=== PATIENT | female | born 1990 | race Caucasian/White ===

== ENCOUNTER 2017-06-12 22:49 | Emergency (ER) | payer MEDICAID ==
[2017-06-12 22:56] VITALS: BP 144/96
[2017-06-12] MEDS ORDERED: PROPARACAINE 0.5% OPHTH DROPS 15 ML ONE (23:12)
[2017-06-12] MEDS ORDERED: POLYMYXIN B/TRIMETH OPHTH DROPS ONE (23:12)
[2017-06-12] MEDS ORDERED: PROPARACAINE 0.5% OPHTH DROPS 15 ML RIGHTEYE STA (23:14)
[2017-06-12] MEDS ORDERED: POLYMYXIN B/TRIMETH OPHTH DROPS RIGHTEYE STA (23:14)
--- NOTE | 2017-06-12 23:33 | ED Physician Documentation ---
PD HPI OPHTHO - Stated complaint Stated Complaint: RT EYE PX - Chief complaint Chief Complaint: Heent - History obtained from History obtained from: Patient - History of Present Illness Timing - onset: Today Timing - details: Gradual onset, Still present Location: Right Quality / character: Burning, Throbbing Associated symptoms: Redness, Discharge, Matting Contributing factors: No: Exposed to conjunctivitis, Recent URI, FB, UV light ( welding etc), Chemical exposure, acid, Chemical exposure, base Similar symptoms before: Has not had sx before Recently seen: Not recently seen - Additional information Additional information: Patient is a 27 year old female with no significant past medical history who is presenting to the emergency department for right eye pain, redness and discharge. Patient states that earlier today her eye started to feel a bit irritated. patient denied an trauma. Patient states that she took a nap and when she woke up she had a red eye with purulent discharge. patient denies any sick contacts. Review of Systems Constitutional: denies: Fever, Chills Eyes: reports: Decreased vision, Photophobia, Discharge, Irritation. 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 - Present Medications Home Medications: Ambulatory Orders Medication Instructions Recorded Confirmed Albuterol 2.5 mg INH Q4H PRN #30 neb 09/12/13 Albuterol Sulfate 1.25 mg IH PRN 09/12/13 09/12/13 Albuterol [Ventolin Hfa] 2 puffs INH Q4H PRN #1 inhaler 09/12/13 Azithromycin [Zithromax] 250 mg PO DAILY #4 tablet 09/12/13 Vit37/Iron/Folic Acid 1 each PO 09/12/13 09/12/13 [Prenata Chewable Tablet] - Allergies Allergies/Adverse Reactions: Allergies Allergy/AdvReac Type Severity Reaction Status Date / Time meperidine HCl * Allergy Hives Verified 06/12/17 22:56 [From Demerol] - Social History Does the pt smoke?: No Smoking Status: Never smoker Does the pt drink ETOH?: No Does the pt have substance abuse?: No - Immunizations Immunizations are current?: No - POLST Patient has POLST: No PD ED PE NORMAL - Vitals Vital signs reviewed: Yes - General General: Alert and oriented X 3 - HEENT HEENT: Atraumatic, Ears normal, Moist mucous membranes, Pharynx benign - Neck Neck: Supple, no meningeal sign - Cardiac Cardiac: RRR, No murmur - Respiratory Respiratory: No respiratory distress - Abdomen Abdomen: Soft, Non tender, Non distended - Derm Derm: Normal color, Warm and dry - Extremities Extremities: No deformity, No tenderness to palpate, No edema - Neuro Neuro: Alert and oriented X 3, 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 No: Corneal FB, Corneal abrasion Results - Vitals Vitals: Vital Signs - 24 hr 06/12/17 22:52 Temperature 36.6 C Heart Rate 87 Respiratory 17 Rate Blood Pressure 144/96 H O2 Saturation 98 Oxygen O2 Source Room air PD MEDICAL DECISION MAKING - ED course Complexity details: reviewed old records, re-evaluated patient, considered differential, d/w patient ED course: Patient was seen and examined at bedside. Patient was treated with proparacaine and polytrim. Patient required no further work up and was stable for discharge with outpatient follow up. Departure - Departure Disposition: 01 Home, Self Care Clinical Impression: Conjunctivitis Condition: Good Instructions: ED Conjunctivitis Bacterial Follow-Up: Isabelle Saez MD [Primary Care Provider] - Within 3 Days Comments: Your symptoms today are being caused by conjunctivitis. You were given your first dose of antibiotics today and you will need to apply drops 4 times a day. You should follow up with your pmd if your symptoms persist. You should return to the emergency department at any time for new, worsening or uncontrollable symptoms. Discharge Date/Time: 06/12/17 23:40
== END 2017-06-12 23:40 | disposition home or self-care (01) ==
LOC: ED 22:49
DX: I10 Essential (primary) hypertension (principal)
CPT/HCPCS: 99282; 99283; A9270; J3490

== ENCOUNTER 2018-05-08 11:53 | Emergency (ER) | payer MEDICAID ==
[2018-05-08 12:19] VITALS: BP 148/88
--- NOTE | 2018-05-08 13:09 | ED Physician Documentation ---
PD HPI URI - Stated complaint Stated Complaint: WHEEZING - Chief complaint Chief Complaint: Resp - History obtained from History obtained from: Patient - History of Present Illness Timing - onset: How many weeks ago (1-2 weeks of congestion and allergy symptoms , increased wheeze and cough. Has had purulent sputum the past few days and worse cough. Out of mDI.) Review of Systems Constitutional: reports: Myalgias, Fatigue. denies: Fever Nose: reports: Congestion, Sinus pressure / pain. 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 - Present Medications Home Medications: Ambulatory Orders Medication Instructions Recorded Confirmed Albuterol 2.5 mg INH Q4H PRN #30 neb 09/12/13 Vit37/Iron/Folic Acid 1 each PO 09/12/13 09/12/13 [Prenata Chewable Tablet] Albuterol 2.5 mg INH Q4H PRN #30 neb 05/08/18 Albuterol Sulf [Ventolin Hfa 1 - 2 puffs INH Q4HR PRN #1 inhaler 05/08/18 Inhaler] Amoxicillin 500 mg PO TID #20 capsule 05/08/18 Cetirizine [ZyrTEC] 10 mg PO DAILY #20 tablet 05/08/18 Dexamethasone [Decadron] 4 mg PO DAILY #5 tablet 05/08/18 - Allergies Allergies/Adverse Reactions: Allergies Allergy/AdvReac Type Severity Reaction Status Date / Time meperidine HCl * Allergy Hives Verified 05/08/18 12:18 [From Demerol] - Social History Does the pt smoke?: No Smoking Status: Never smoker Does the pt drink ETOH?: No Does the pt have substance abuse?: Yes Substance Use and Type: Marijuana - Immunizations Immunizations are current?: Yes - POLST Patient has POLST: No PD ED PE NORMAL - Vitals Vital signs reviewed: Yes - General General: Alert and oriented X 3, Well developed/nourished - HEENT HEENT: Ears normal, Moist mucous membranes, Pharynx benign - Neck Neck: Supple, no meningeal sign, No adenopathy - Cardiac Cardiac: RRR, No murmur - Respiratory Respiratory: No: Clear bilaterally (wheezing noted diffusely. No coarse sounds. ) Results - Vitals Vitals: Oxygen O2 Source Room air PD MEDICAL DECISION MAKING - ED course Complexity details: reviewed results, considered differential, d/w patient - Sepsis Event Vital Signs: Oxygen O2 Source Room air Departure - Departure Disposition: Home, Self Care Clinical Impression: Asthma exacerbation Qualifiers: Asthma severity: moderate Asthma persistence: unspecified Qualified Code(s): J45.901 - Unspecified asthma with (acute) exacerbation Sinusitis Qualifiers: Sinusitis location: unspecified location Chronicity: acute Recurrence: non- recurrent Qualified Code(s): J01.90 - Acute sinusitis, unspecified Condition: Stable Record reviewed to determine appropriate education?: Yes Instructions: Asthma Dc, ED Sinusitis Abx Tx Follow-Up: Isabelle Saez MD [Primary Care Provider] - Prescriptions: Albuterol Sulf [Ventolin Hfa Inhaler] 1 - 2 puffs INH Q4HR PRN #1 inhaler PRN Reason: Shortness Of Air/Wheezing Albuterol 2.5 mg INH Q4H PRN #30 neb PRN Reason: Wheezing Amoxicillin 500 mg PO TID #20 capsule Cetirizine [ZyrTEC] 10 mg PO DAILY #20 tablet Dexamethasone [Decadron] 4 mg PO DAILY #5 tablet Comments: Drink lots of fluids. Consider saline nasal spray to decrease nasal and sinus congestion several times daily. Decadron steroid daily for 5 days for inflammation of sinuses and bronchioles. This should help her symptoms a lot. Continue the albuterol inhaler 2 puffs 4 times a day for the next 7-10 days and extra times as needed. Cetirizine antihistamine for the next couple of weeks to reduce and keep congestion away. Amoxicillin 3 times a day for a week for infection of the sinuses. Recheck if not improving over the next several days. Discharge Date/Time: 05/08/18 14:15
[2018-05-08] MEDS ORDERED: ALBUTEROL NEB 2.5 MG/3 ML INH STA (13:16)
[2018-05-08] MEDS ORDERED: DEXAMETHASONE 10 MG/ML VIAL PO STA (13:16)
[2018-05-08] MEDS ORDERED: CETIRIZINE 10 MG TABLET PO STA (13:16)
[2018-05-08] MEDS ORDERED: AMOXICILLIN 250 MG CAPSULE PO STA (13:18)
== END 2018-05-08 14:15 | disposition home or self-care (01) ==
LOC: ED 11:53
DX: J45.901 Unspecified asthma with (acute) exacerbation (principal); J01.90 Acute sinusitis, unspecified
CPT/HCPCS: 94640; 94664; 99283; A9270

== ENCOUNTER 2018-08-10 09:48 | Emergency (ER) | payer MEDICAID ==
[2018-08-10 09:56] VITALS: BP 140/100
[2018-08-10] MEDS ORDERED: PROPARACAINE 0.5% OPHTH DROPS 15 ML EACHEYE STA (09:58)
[2018-08-10] MEDS ORDERED: IBUPROFEN 400 MG TABLET PO STA (10:16)
[2018-08-10] MEDS ORDERED: ERYTHROMYCIN OPHTH OINT 1 GM TUBE RIGHTEYE STA (10:16)
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
== END 2018-08-10 10:26 | disposition home or self-care (01) ==
LOC: ED 09:48
DX: S05.8X1A Other injuries of right eye and orbit, initial encounter (principal); W22.8XXA Striking against or struck by other objects, initial encounter; I10 Essential (primary) hypertension
CPT/HCPCS: 99282; 99283; A9270; J3490

== ENCOUNTER 2019-02-18 05:38 | Emergency (ER) | payer MEDICAID ==
--- NOTE | 2019-02-18 06:22 | ED Physician Documentation ---
PD HPI DYSPNEA - Stated complaint Stated Complaint: SOA - Chief complaint Chief Complaint: Resp - History obtained from History obtained from: Patient - History of Present Illness Timing - onset: Yesterday Timing - details: Gradual onset, Waxing and waning Pain level now: 4 (ONEAL (only when coughing)) Improved by: Sitting up Worsened by: Laying flat Associated symptoms: Cough, Wheezing. No: Fever, Bilateral edema, Unilateral edema Recently seen: Not recently seen - Additional information Additional information: c/o cough, chest "constricted" (per patient), wheezing. symptoms began yesterday. Feels post-nasal drip, sinus congestion. used albuterol MDI and sudafed without adequate relief. Review of Systems Ears: denies: Ear pain Nose: reports: Congestion Throat: denies: Sore throat Cardiac: reports: Reviewed and negative Respiratory: reports: Dyspnea, Cough, Wheezing. 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 - Present Medications Home Medications: Ambulatory Orders Medication Instructions Recorded Confirmed Vit37/Iron/Folic Acid 1 each PO 09/12/13 09/12/13 [Prenata Chewable Tablet] Albuterol Sulf [Ventolin Hfa 1 - 2 puffs INH Q4HR PRN #1 inhaler 05/08/18 Inhaler] Cetirizine [ZyrTEC] 10 mg PO DAILY #20 tablet 05/08/18 Erythromycin Base [Erythromycin] 1 applic OP Q4H #1 tub 08/10/18 Levalbuterol [Xopenex] 1 puffs INH Q4-6H #1 inhaler 02/18/19 predniSONE [Prednisone] 40 mg PO DAILY 4 Days #8 tablet 02/18/19 - Allergies Allergies/Adverse Reactions: Allergies Allergy/AdvReac Type Severity Reaction Status Date / Time meperidine HCl * Allergy Hives Verified 02/18/19 05:47 [From Demerol] - Social History Does the pt smoke?: No Smoking Status: Never smoker Does the pt drink ETOH?: Yes Does the pt have substance abuse?: No Substance Use and Type: Marijuana - Immunizations Immunizations are current?: Yes - POLST Patient has POLST: No PD ED PE NORMAL - Vitals Vital signs reviewed: Yes - General General: Alert and oriented X 3, No acute distress, Well developed/nourished - HEENT HEENT: Moist mucous membranes, Pharynx benign - Cardiac Cardiac: RRR, No murmur - Respiratory Respiratory: No respiratory distress PD ED PE EXPANDED - Respiratory Respiratory: Wheezing (course wheezing bilateral bases and left mid lung field). No: Distress Results - Vitals Vitals: Vital Signs - 24 hr 02/18/19 02/18/19 02/18/19 05:43 07:23 08:05 Temperature 37.6 C H 37.0 C Heart Rate 92 104 H 80 Respiratory 16 106 H 16 Rate Blood Pressure 154/90 H 147/87 H O2 Saturation 100 97 Oxygen O2 Source Room air PD MEDICAL DECISION MAKING - ED course Complexity details: re-evaluated patient, considered differential, d/w patient ED course: given duoneb and 60mg PO prednisone. Patient reported good improvement in symptoms after duoneb and is comfortable with d/c home. Departure - Departure Disposition: 01 Home, Self Care Clinical Impression: Asthma exacerbation Condition: Good Instructions: ED Reactive Airway Disease Prescriptions: Levalbuterol [Xopenex] 1 puffs INH Q4-6H #1 inhaler predniSONE [Prednisone] 40 mg PO DAILY 4 Days #8 tablet Forms: Activity restrictions Discharge Date/Time: 02/18/19 08:09
[2019-02-18] MEDS ORDERED: predniSONE 20 MG TABLET PO STA (06:37)
[2019-02-18] MEDS ORDERED: IPRATROPIUM/ALBUTEROL 3 ML NEB INH STA (06:37)
[2019-02-18 08:05] VITALS: BP 147/87
== END 2019-02-18 08:09 | disposition home or self-care (01) ==
LOC: ED 05:38
DX: J45.901 Unspecified asthma with (acute) exacerbation (principal); I10 Essential (primary) hypertension
CPT/HCPCS: 94640; 99283; J7512

== ENCOUNTER 2019-04-25 21:35 | Emergency (ER) | payer MEDICAID ==
[2019-04-25] MEDS ORDERED: ALBUTEROL NEB 2.5 MG/3 ML INH STA (22:32)
[2019-04-25] MEDS ORDERED: SULFAMETH/TRIMETH DS 800/160 MG TABLET PO STA (22:32)
[2019-04-25] MEDS ORDERED: DEXAMETHASONE 10 MG/ML VIAL PO STA (22:32)
[2019-04-25] MEDS ORDERED: CHERRY SYRUP 10 ML UDC PO ONE (22:32)
--- NOTE | 2019-04-25 22:48 | ED Physician Documentation ---
History of Present Illness - Stated complaint Stated Complaint: ASTHMA EXACERBATION, BUG BITE - Chief complaint Chief Complaint: Resp - History obtained from History obtained from: Patient - History of Present Illness Timing: Other (1 month ago) Pain level max: 0 Pain level now: 0 - Additonal information Additional information: 29-year-old female presents to the emergency department stating that her asthma has been acting up over the last month. She does have an inhaler at home. Used to take allergy medication but currently is not taking any. No fevers. No coughing. She uses her inhaler 1-2 times per day. She also noted a "bug bite" to the right lower leg. She states that it is still red. No fevers. 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 Home Medications: Ambulatory Orders Medication Instructions Recorded Confirmed Vit37/Iron/Folic Acid 1 each PO 09/12/13 09/12/13 [Prenata Chewable Tablet] Albuterol Sulf [Ventolin Hfa 1 - 2 puffs INH Q4HR PRN #1 inhaler 05/08/18 Inhaler] Cetirizine [ZyrTEC] 10 mg PO DAILY #20 tablet 05/08/18 Erythromycin Base [Erythromycin] 1 applic OP Q4H #1 tub 08/10/18 Levalbuterol [Xopenex] 1 puffs INH Q4-6H #1 inhaler 02/18/19 predniSONE [Prednisone] 40 mg PO DAILY 4 Days #8 tablet 02/18/19 Albuterol Sulf [Ventolin Hfa 1 - 2 puffs INH Q4HR PRN #1 inhaler 04/25/19 Inhaler] Cetirizine [ZyrTEC] 10 mg PO DAILY #30 tablet 04/25/19 Sulfamethox/Trimeth 800/160 1 each PO BID #14 tablet 04/25/19 [Bactrim Ds 800/160] predniSONE [Prednisone] 40 mg PO DAILY #10 tablet 04/25/19 - Allergies Allergies/Adverse Reactions: Allergies Allergy/AdvReac Type Severity Reaction Status Date / Time meperidine HCl * Allergy Hives Verified 02/18/19 05:47 [From Demerol] - Social History Does the pt smoke?: No Smoking Status: Never smoker Does the pt drink ETOH?: Yes Does the pt have substance abuse?: No - Immunizations Immunizations are current?: Yes - POLST Patient has POLST: No PD ED PE NORMAL - Vitals Vital signs reviewed: Yes - General General: Alert and oriented X 3, No acute distress - HEENT HEENT: Moist mucous membranes - Neck Neck: Supple, no meningeal sign - Cardiac Cardiac: RRR, Strong equal pulses - Respiratory Respiratory: No respiratory distress, Other (Diminished breath sounds and mild wheezing bilaterally. No respiratory distress) - Derm Derm: Warm and dry, Other (2 cm area of erythema to the right lower leg. No induration. No fluctuance. No drainage) - Neuro Neuro: Alert and oriented X 3 Results - Vitals Vitals: Vital Signs - 24 hr 04/25/19 04/25/19 04/25/19 22:05 22:47 23:11 Temperature 37.2 C 36.8 C Heart Rate 92 92 92 Respiratory 16 16 20 Rate Blood Pressure 147/100 H 149/94 H O2 Saturation 96 93 Oxygen O2 Source Room air PD MEDICAL DECISION MAKING - ED course Complexity details: considered differential, d/w patient ED course: Feels better after nebulizer treatment. Will place on albuterol and Zyrtec for home. She is well-appearing, nontoxic. Afebrile. No hypoxia. Also given a dose of dexamethasone. Will also place on Bactrim for home for the mild cellulitis. Patient counseled regarding signs and symptoms for which I believe and urgent re-evaluation would be necessary. Patient with good understanding of and agreement to plan and is comfortable going home at this time This document was made in part using voice recognition software. While efforts are made to proofread this document, sound alike and grammatical errors may occur. Departure - Departure Disposition: 01 Home, Self Care Clinical Impression: Seasonal allergies, Cellulitis of right lower extremity Asthma exacerbation Qualifiers: Asthma severity: moderate Asthma persistence: unspecified Qualified Code(s): J45.901 - Unspecified asthma with (acute) exacerbation Condition: Good Instructions: ED Reactive Airway Disease, ED Infec Skin Cellulitis Follow-Up: your,doctor in 1 week [Other] Prescriptions: Albuterol Sulf [Ventolin Hfa Inhaler] 1 - 2 puffs INH Q4HR PRN #1 inhaler PRN Reason: Shortness Of Air/Wheezing Cetirizine [ZyrTEC] 10 mg PO DAILY #30 tablet predniSONE [Prednisone] 40 mg PO DAILY #10 tablet Sulfamethox/Trimeth 800/160 [Bactrim Ds 800/160] 1 each PO BID #14 tablet Comments: Take all antibiotics until gone. Return if you worsen. Follow-up with your doctor for further care. Discharge Date/Time: 04/25/19 23:12
[2019-04-25 23:12] VITALS: BP 149/94
== END 2019-04-25 23:12 | disposition home or self-care (01) ==
LOC: ED 21:35
DX: J45.901 Unspecified asthma with (acute) exacerbation (principal); L03.115 Cellulitis of right lower limb; I10 Essential (primary) hypertension
CPT/HCPCS: 94640; 94664; 99283; A9270

== ENCOUNTER 2019-07-21 11:10 | Emergency (ER) | payer MEDICAID ==
[2019-07-21 11:40] LABS: BILIRUBIN,URINE NEGATIVE (NEGATIVE); GLUCOSE, URINE (UA) NEGATIVE (NEGATIVE); KETONES,URINE (UA) NEGATIVE (NEGATIVE); LEUKOCYTE ESTERASE, URINE NEGATIVE (NEGATIVE); NITRITE,URINE NEGATIVE (NEGATIVE); OCCULT BLOOD,URINE LARGE (NEGATIVE); PH,URINE 7.5 PH (5.0-7.5); PROTEIN,URINE 30 mg/dL (NEGATIVE); UROBILINOGEN,URINE 0.2 (NORMAL) E.U./dL (NORMAL)
[2019-07-21 11:41] LABS: CLARITY,URINE CLOUDY (CLEAR)
[2019-07-21 11:44] LABS: HCG UR QUAL POSITIVE
[2019-07-21 11:56] LABS: BACTERIA,URINE Rare /HPF (None Seen); RBC,URINE TNTC /HPF (0-5); SQUAMOUS EPITHELIAL CELL,UR RARE Squamous (<= Few)
[2019-07-21 14:03] VITALS: BP 155/106
--- NOTE | 2019-07-21 14:14 | Ultrasound Report ---
Reason: early bleeding/pain Procedure Date: 07/21/2019 Accession Number: [id number] / [id number] Procedure: US - OB First Trimester CPT Code: FULL RESULT: EXAM: FIRST TRIMESTER OBSTETRIC ULTRASOUND (Less than 11 weeks) EXAM DATE: 07/21/2019 01:12 PM. CLINICAL HISTORY: Early bleeding/pain. BetahCG 310. LMP: 07/06/2020. COMPARISONS: None. TECHNIQUE: Transabdominal and transvaginal ultrasound examination with static image documentation. CLINICAL DATES: EGA 2 weeks 1 day with KADEN 04/11/2020 based on LMP. ASSESSMENT: No intrauterine gestational sac or findings of intrauterine at this time. MATERNAL STRUCTURES: Uterus: Anteverted. Unremarkable. Cervix: Closed. Right Ovary/Adnexa: The ovary measures 6.2 x 2.9 x 4.1 cm, volume 38.5 cc. There is a bilobed shape to the right ovary with a possible solid mass measuring 3.7 x 2.9 x 4.0 cm. Blood flow present in right ovary on Doppler.. Left Ovary/Adnexa: The ovary measures 2.8 x 2.1 x 2.0 cm, volume 6.2 cc. Unremarkable. Free Fluid: Small volume of free fluid.. Other: None. IMPRESSION: 1. No intrauterine gestational sac. Differential diagnosis would include normal early intrauterine too early to visualize, ectopic , and blighted ovum. 2. Right ovarian solid mass measuring 3.7 x 2.9 x 4 cm versus bilobed shape of right ovary. Nonspecific finding. Considering low hCG and clinical age of 2 weeks and 1 day, follow-up recommended. 3. Small free fluid in the cul-de-sac. RADIA
--- NOTE | 2019-07-21 15:15 | ED Physician Documentation ---
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 Review of Systems Constitutional: reports: Fatigue. denies: Fever, Chills, Myalgias Eyes: denies: Decreased vision Ears: denies: Ear pain Nose: denies: Congestion Throat: denies: Sore throat Respiratory: denies: Cough GI: reports: Abdominal Pain, Nausea, Vomiting : denies: Dysuria, Frequency Skin: denies: Rash Musculoskeletal: denies: Neck pain, Back pain, Extremity pain PD PAST MEDICAL HISTORY - Past Medical History Cardiovascular: Hypertension Respiratory: Asthma Endocrine/Autoimmune: None GI: None SOFTWARE DATABASE ARCHITECT: None : None Psych: None Musculoskeletal: None Derm: None - Past Surgical History Past Surgical History: Yes /SOFTWARE DATABASE ARCHITECT: section - Present Medications Home Medications: Ambulatory Orders Medication Instructions Recorded Confirmed Vit37/Iron/Folic Acid 1 each PO 09/12/13 09/12/13 [Prenata Chewable Tablet] Albuterol Sulf [Ventolin Hfa 1 - 2 puffs INH Q4HR PRN #1 inhaler 05/08/18 Inhaler] Cetirizine [ZyrTEC] 10 mg PO DAILY #20 tablet 05/08/18 Erythromycin Base [Erythromycin] 1 applic OP Q4H #1 tub 08/10/18 Levalbuterol [Xopenex] 1 puffs INH Q4-6H #1 inhaler 02/18/19 predniSONE [Prednisone] 40 mg PO DAILY 4 Days #8 tablet 02/18/19 Albuterol Sulf [Ventolin Hfa 1 - 2 puffs INH Q4HR PRN #1 inhaler 04/25/19 Inhaler] Cetirizine [ZyrTEC] 10 mg PO DAILY #30 tablet 04/25/19 Sulfamethox/Trimeth 800/160 1 each PO BID #14 tablet 04/25/19 [Bactrim Ds 800/160] predniSONE [Prednisone] 40 mg PO DAILY #10 tablet 04/25/19 - Allergies Allergies/Adverse Reactions: Allergies Allergy/AdvReac Type Severity Reaction Status Date / Time meperidine HCl * Allergy Hives Verified 02/18/19 05:47 [From Demerol] - Social History Does the pt smoke?: No Smoking Status: Never smoker Does the pt drink ETOH?: Yes Does the pt have substance abuse?: No - Immunizations Immunizations are current?: Yes - POLST Patient has POLST: No PD ED PE NORMAL - Vitals Vital signs reviewed: Yes (tachy and hypertensive ) - General General: Alert and oriented X 3, No acute distress, Well developed/nourished - HEENT HEENT: Atraumatic, PERRL, EOMI - Neck Neck: Supple, no meningeal sign, No bony TTP - Cardiac Cardiac: No murmur, Other (tachy to 100) - Respiratory Respiratory: No respiratory distress, Clear bilaterally - Abdomen Abdomen: Soft, Non tender - Back Back: No CVA TTP, No spinal TTP - Derm Derm: Normal color, Warm and dry, No rash - Extremities Extremities: No deformity, No edema - Neuro Neuro: Alert and oriented X 3, crown ceramist 2-12 intact, No motor deficit, No sensory deficit, Normal speech Eye Opening: Spontaneous Motor: Obeys Commands Verbal: Oriented GCS Score: 15 - Psych Psych: Normal mood, Normal affect Results - Vitals Vitals: Vital Signs - 24 hr 07/21/19 07/21/19 11:19 14:02 Temperature 36.3 C L 36.7 C Heart Rate 113 H 101 H Respiratory 18 18 Rate Blood Pressure 146/96 H 155/106 H O2 Saturation 99 97 Oxygen O2 Source Room air - Labs Labs: Laboratory Tests 07/21/19 07/21/19 11:32 13:05 HCG, Quant 310.34 Urine Color LT RED Urine Clarity CLOUDY Urine pH 7.5 Ur Specific [place] 1.015 Urine Protein 30 H Urine Glucose (UA) NEGATIVE Urine Ketones NEGATIVE Urine Occult Blood LARGE H Urine Nitrite NEGATIVE Urine Bilirubin NEGATIVE Urine Urobilinogen 0.2 (NORMAL) Ur Leukocyte Esterase NEGATIVE Urine RBC TNTC H Urine WBC 0-3 Ur Squamous Epith Cells RARE Squamous Urine Bacteria Rare Ur Microscopic Review INDICATED Urine Culture Comments NOT INDICATED Urine HCG, Qual POSITIVE - Rads (name of study) ob u/s Radiology: Prelim report reviewed (Impression: 1. No intrauterine gestational sac. Differential diagnosis would include normal early intrauterine too early to visualize, ectopic , and blighted ovum. 2 Right ovarian solid mass measuring 3.7 x 2.9 x 4 cm versus bilobed shape of the right ovary. Nonspecific finding. Consider low hCG and clinical age of 2 weeks and 1 day follow-up recommended. 3. Small free fluid in the cul-de-sac.), EMP read indepedently, See rad report PD MEDICAL DECISION MAKING - ED course Complexity details: reviewed results, re-evaluated patient, considered differential, d/w patient ED course: 29-year-old female with early and a quantitative hCG in the 300 range does not have visible gestational sac. She will need follow-up quantitative hCG and surveillance. I discussed the findings with the patient and she will follow[facility] with [facility]. Departure - Departure Disposition: 01 Home, Self Care Clinical Impression: Threatened miscarriage in early Condition: Stable Instructions: ED Miscarriage Poss, ED Abdominal Pain Rule Out Ectopic Follow-Up: [facility] [Provider Group] Forms: Activity restrictions
== END 2019-07-21 16:28 | disposition home or self-care (01) ==
LOC: ED 11:10
DX: O20.0 Threatened abortion (principal); Z3A.01 Less than 8 weeks gestation of pregnancy; O16.1 Unspecified maternal hypertension, first trimester
CPT/HCPCS: 76801; 76817; 81001; 81003; 81025; 84702; 87086; 99284

== ENCOUNTER 2019-07-24 08:00 | Outpatient (CLI) | payer MEDICAID | END 2019-07-24 23:59 | LOC: LAB.R 08:00 | PROVIDERS: ATTEND Obstetrics & Gynecology | DX: O23.41 Unspecified infection of urinary tract in pregnancy, first trimester (principal) | CPT/HCPCS: 87086 ==

== ENCOUNTER 2019-07-24 13:51 | Outpatient (CLI) | payer MEDICAID | END 2019-07-24 13:52 | disposition home or self-care (01) | LOC: LAB 13:51 | PROVIDERS: ATTEND Obstetrics & Gynecology | DX: Z32.01 Encounter for pregnancy test, result positive (principal); O23.41 Unspecified infection of urinary tract in pregnancy, first trimester | CPT/HCPCS: 36415; 84702; 87086 ==

== ENCOUNTER 2019-07-27 13:40 | Outpatient (CLI) | payer MEDICAID | END 2019-07-27 13:41 | disposition home or self-care (01) | LOC: LAB 13:40 | PROVIDERS: ATTEND Obstetrics & Gynecology | DX: Z34.80 Encounter for supervision of other normal pregnancy, unspecified trimester (principal) | CPT/HCPCS: 36415; 84702 ==

== ENCOUNTER 2019-07-28 16:50 | Outpatient (CLI) | payer MEDICAID ==
--- NOTE | 2019-07-29 14:25 | Ultrasound Report ---
Reason: POSITIVE TEST Procedure Date: 07/28/2019 Accession Number: [id number] / [id number] Procedure: US - OB First Trimester CPT Code: FULL RESULT: EXAM: FIRST TRIMESTER OBSTETRIC ULTRASOUND (Less than 11 weeks) EXAM DATE: 07/28/2019 06:45 PM. CLINICAL HISTORY: Bleeding and pain, POSITIVE TEST. HCG 695 currently, previous hCG 310 on 07/21/2019 LMP: 07/06/2020. COMPARISONS: OB FIRST TRIMESTER 07/21/2019 1:12 PM. TECHNIQUE: Transabdominal and transvaginal ultrasound examination with static image documentation. CLINICAL DATES: EGA 3 weeks 1 day with KADEN 04/11/2020 based on LMP.. ASSESSMENT: Gestational Sac: Intrauterine gestational sac not seen. MATERNAL STRUCTURES: Uterus: Anteverted. Question small posterior subserosal fibroid, approximately 1.5 cm in diameter.. Cervix: Closed. Right Ovary/Adnexa: The ovary measures 6.2 x 4 x 5.5 cm, volume 71.5 cc. The previously described possible solid mass is not seen today. A 3.8 x 3.1 x 4.2 cm cyst with possible septation is seen.. Left Ovary/Adnexa: The ovary measures 2.7 x 2.3 x 2.2 cm, volume 6.8 cc. Unremarkable. Free Fluid: None. Other: None. IMPRESSION: 1. An intrauterine gestational sac is not seen. 2. A 3.8 x 3.1 x 4.2 cm cyst is now seen on the right ovary. Previously described possible solid right ovarian mass not identified today. 3. Differential diagnosis still includes normal intrauterine too early to visualize, ectopic , and blighted ovum. Follow-up of beta-hCG levels and repeat ultrasound recommended. RADIA
== END 2019-07-28 16:51 | disposition home or self-care (01) ==
LOC: DI 16:50
PROVIDERS: ATTEND Obstetrics & Gynecology
DX: Z32.01 Encounter for pregnancy test, result positive (principal); N83.201 Unspecified ovarian cyst, right side
CPT/HCPCS: 76801; 76817

== ENCOUNTER 2019-08-05 06:14 | Day surgery (SDC) | payer MEDICAID ==
[2019-08-05] MEDS ORDERED: DEXAMETHASONE 4 MG/ML VIAL IVP ONE (06:15)
[2019-08-05] MEDS ORDERED: DOXYCYCLINE INJ 100 MG in SODIUM CHLORIDE 0.9% MINIBAG 100 ML IV ONE (06:15)
[2019-08-05] MEDS ORDERED: ACETAMINOPHEN 1,000 MG/100 ML 100 ML IV ONE (06:15)
[2019-08-05] MEDS ORDERED: MIDAZOLAM 2 MG/2 ML VIAL IVP ONE (06:15)
[2019-08-05] MEDS ORDERED: KETOROLAC 30 MG/ML VIAL IVP ONE (06:15)
[2019-08-05] MEDS ORDERED: METOCLOPRAMIDE 10 MG/2 ML VIAL IVP ONE (06:15)
[2019-08-05] MEDS ORDERED: PROPOFOL 200 MG/20 ML VIAL IVP ONE (06:15)
[2019-08-05] MEDS ORDERED: LACTATED RINGERS 1,000 ML IV ONE ×2 (06:41→09:23)
[2019-08-05 07:11] LABS: BASOPHILS # (AUTO) 0.1 10^3/uL (0.0-0.1); BASOPHILS % (AUTO) 0.5 %; BILIRUBIN,URINE NEGATIVE (NEGATIVE); EOSINOPHILS # (AUTO) 0.2 10^3/uL (0.0-0.7); EOSINOPHILS % (AUTO) 1.1 %; GLUCOSE, URINE (UA) NEGATIVE (NEGATIVE); HGB - HEMOGLOBIN 13.4 g/dL (12.0-16.0); KETONES,URINE (UA) TRACE mg/dL (NEGATIVE); LEUKOCYTE ESTERASE, URINE NEGATIVE (NEGATIVE); LYMPHOCYTES # (AUTO) 2.1 10^3/uL (1.5-3.5); LYMPHOCYTES % (AUTO) 16.1 %; MEAN CORPUSCULAR HGB CONC 33.5 g/dL (32.0-36.0); MEAN CORPUSCULAR VOLUME 86.6 fL (81.0-99.0); MEAN PLATELET VOLUME 8.8 fL (7.9-10.8); MONOCYTES # (AUTO) 0.5 10^3/uL (0.0-1.0); MONOCYTES % (AUTO) 3.8 %; NEUTROPHILS # (AUTO) 10.3 10^3/uL (1.5-6.6); NEUTROPHILS % (AUTO) 77.9 %; NITRITE,URINE NEGATIVE (NEGATIVE); OCCULT BLOOD,URINE NEGATIVE (NEGATIVE); PH,URINE 6.5 PH (5.0-7.5); PLT - PLATELET COUNT 307 10^3/uL (130-450); PROTEIN,URINE 100 mg/dL (NEGATIVE); RED BLOOD COUNT 4.62 10^6/uL (4.20-5.40); RED CELL DISTRIBUTION WIDTH 13.3 % (12.0-15.0); UROBILINOGEN,URINE 0.2 (NORMAL) E.U./dL (NORMAL); WHITE BLOOD COUNT 13.2 x10^3/uL (4.8-10.8)
[2019-08-05 07:12] LABS: CLARITY,URINE CLEAR (CLEAR)
[2019-08-05 07:17] LABS: RBC,URINE 0-5 /HPF (0-5)
[2019-08-05 07:18] LABS: BACTERIA,URINE Rare /HPF (None Seen); SQUAMOUS EPITHELIAL CELL,UR MOD Squamous (<= Few)
--- NOTE | 2019-08-05 07:19 | ANESTHESIA ---
Pre-Anesthesia VS, & Labs - Diagnosis nonviable , possible ectopic - Procedure suction D and C, with diagnostic laparoscopy Vital Signs: Temp Pulse Resp BP Pulse Ox 37.2 C 104 H 18 157/106 H 100 08/05/19 06:42 08/05/19 06:42 08/05/19 06:42 08/05/19 06:42 08/05/19 06:42 Height 5 ft 4 in Weight (kg) 109.1 kg Body Mass Index 43.8 - NPO >8 hours - Is Patient ?: Yes - Lab Results Current Lab Results: Laboratory Tests 08/05/19 06:40: WBC 13.2 H, RBC 4.62, Hgb 13.4, Hct 40.0, MCV 86.6, MCH 29.0, MCHC 33.5, RDW 13.3, Plt Count 307, MPV 8.8, Neut # (Auto) 10.3 H, Lymph # (Auto) 2.1, [place] # (Auto) 0.5, Eos # (Auto) 0.2, Baso # (Auto) 0.1, Absolute Nucleated RBC 0.00, Nucleated RBC % 0.0 Fish Bones: 08/05/19 06:40 Home Medications and Allergies Home Medications: Ambulatory Orders Multivitamin [Daily Multiple Vitamin] 1 each PO DAILY 08/03/19 Multivitamin [Daily Multiple Vitamin] 1 each PO DAILY 08/03/19 Allergies/Adverse Reactions: Allergies Allergy/AdvReac Type Severity Reaction Status Date / Time meperidine HCl * Allergy Hives Verified 08/05/19 06:54 [From Demerol] Anes History & Medical History - Anesthetic History Anesthesia Complications: reports: No previous complications - Medical History Cardiovascular: reports: Other Pulmonary: reports: Asthma Gastrointestinal: reports: None Urinary: reports: None Musculoskeletal: reports: None Endocrine/Autoimmune: reports: Other (obese) Blood Disorders: reports: None Skin: reports: None Smoking Status: Never smoker - Surgical History Gynecologic: section Exam General: Alert, Oriented x3 Dental: WNL, Other (right upper incisor missing) Mouth Opening: Greater than 4 Fingerbreadths Mallampati classification: I Thyromental Distance: greater than 6 cm Respiratory: Lungs clear Cardiovascular: Regular rate, Normal S1, Normal S2 Plan Anesthesia Type: General Consent for Procedure(s) Verified and Reviewed: Yes Code Status: Attempt Resuscitation ASA classification: 2-Mild systemic disease Is this case an emergency?: No
[2019-08-05] MEDS ORDERED: ONDANSETRON 4 MG/2 ML VIAL ONE ×2 (07:25→11:00)
[2019-08-05] MEDS ORDERED: SCOPOLAMINE PATCH TOP ONE (07:25)
[2019-08-05] MEDS ORDERED: IPRATROPIUM/ALBUTEROL 3 ML NEB INH ONE (07:32)
[2019-08-05] MEDS ORDERED: BUPIVACAINE 0.5% PF 10 ML VIAL ONE (07:47)
[2019-08-05] MEDS ORDERED: LIDOCAINE MPF 1%-EPI 1:200000 30 ML VIAL ONE (07:48)
[2019-08-05] MEDS ORDERED: BUPIVACAINE 0.25% PF 30 ML VIAL SUBQ ONE ×2 (08:31)
[2019-08-05] MEDS ORDERED: SUGAMMADEX 200 MG/2 ML VIAL IVP ONE (09:21)
[2019-08-05] MEDS ORDERED: HYDROmorphone 0.5 MG/0.5 ML SYRINGE IVP PRN (09:38)
[2019-08-05] MEDS ORDERED: ONDANSETRON 4 MG/2 ML VIAL IVP PRN (09:38)
[2019-08-05] MEDS ORDERED: HYDROcod/ACETAM 5/325 MG TABLET PO PRN (09:38)
[2019-08-05] MEDS: fentaNYL 100 MCG/2 ML VIAL ONE ×2 (09:56→10:01)
--- NOTE | 2019-08-05 10:37 | OPERATIVE REPORT ---
DATE OF SERVICE: 08/05/2019 Physician: Tomas Nguyễn DO DATE OF PROCEDURE: 08/05/2019. PREOPERATIVE DIAGNOSIS: Nonviable , probable ectopic. POSTOPERATIVE DIAGNOSIS: Right ectopic . PROCEDURE: Suction D and C with laparoscopic right salpingectomy. SURGEON: Tomas Nguyễn DO ANESTHESIA: General. ESTIMATED BLOOD LOSS: 20 mL SURGICAL FINDINGS: The uterus sounded to a depth of 10.5 cm. Virtually no tissue was recovered from the endometrial curettage. Laparoscopic findings revealed a right corpus luteum cyst. There was also a right ectopic , which was coming through the ampulla into the fimbriated end and adhesed to the right sidewall. The liver margins, diaphragms and appendix were unremarkable. The posterior and anterior cul-de-sacs were unremarkable. The left ovary was unremarkable as was the left fallopian tube. PROCEDURE: Patient was taken to the operative suite, placed on the surgical table in supine position. Under general anesthesia, she was placed in Crow stirrups, prepped and draped in the usual fashion. A timeout then took place. After the timeout was completed, a weighted speculum was placed in the vaginal vault and the cervix visualized. A single-tooth tenaculum was placed onto the anterior lip of the cervix. The uterus was then sounded to a depth of 10.5 cm. The cervix was then dilated to 1 cm and a suction curette extended into the endometrial cavity. The endometrial cavity was then thoroughly curetted with return of a scant amount of tissue. A sharp curette was then used also, and again no further tissue was garnered. Polyp forceps were then used and the uterine cavity explored, and again no further tissue was noted. One more pass was made with the suction curette at that point in time. The suction curette was removed. The HUMI was then advanced through the straightened endocervical canal into the endometrial cavity and balloon insufflated. The single-tooth tenaculum was removed from the anterior lip of the cervix. No signs of bleeding were noted. Hemostasis followed. The weighted speculum was then removed from the vaginal vault. The surgeon's gloves were changed and attention was placed to the abdomen. Prior to making any abdominal incisions, all areas were anesthetized with 0.25% Marcaine with epinephrine. Because the patient had 3 sections already, it was decided to make a left subcostal port placement to start to check for adhesions. Therefore, a spot 2 fingerbreadths from the midclavicular line on the abdomen on the left was anesthetized and then a 5 mm incision made. The Veress needle was then extended through the incision into the abdomen. The abdomen was then insufflated with approximately 3 liters of CO2. The Veress needle was withdrawn and the Optiview port was then placed. Under direct laparoscopic visualization, all layers were noted and the abdomen entered. The CO2 was applied, and good intraabdominal pressures were noted. No actual intraabdominal adhesions were noted. A second port was then placed at the umbilicus under direct laparoscopic visualization. This, however, could not be used effectively for the scope as was hoped due to the large ventral hernia she had superior to the umbilicus. A third port was then placed lateral to the left rectus musculature about 2 cm above the left iliac spine, and this was placed under direct laparoscopic visualization. The above findings were then noted, and laparoscopic photographic documentation took place. The right fallopian tube was palpated, and it was felt that there was still hard material within the ampulla of the fallopian tube. Therefore, it was decided to take the fallopian tube on the right-hand side. The remnants of the ectopic were then peeled off the sidewall, and it actually adhered to some of the bowel epiploica. These were all removed and sent to pathology. The right fallopian tube was then elevated and dissected free from the mesosalpinx using the LigaSure [place] device. Hemostasis followed. At this point in time, a 4th port was placed in the midline in the suprapubic area to accommodate an 8 mm port. It was through this that the tube and remnants of the ectopic were removed. There was a small, what appeared to be corpus luteum cyst, which was just fluid filled on the right ovary. This was needled to remove some of the fluid and hemostasis followed. The entire area was then thoroughly irrigated, and hemostasis was ensured. No apparent remnants of any ectopic tissue were noted. The CO2 was now allowed to escape from the abdomen, and all ports were removed. The skin was closed in a subcuticular fashion using 4-0 Monocryl suture and hemostasis followed. Steri- Strips were placed, and sterile dressings were placed. The HUMI was removed from the uterus and hemostasis followed. The patient was then taken to recovery room in stable condition. TD: 08/05/2019 10:09 FRIEDA
[2019-08-05] MEDS ORDERED: HYDROcod/ACETAM 5/325 MG TABLET ONE (11:00)
[2019-08-05 11:22] VITALS: BP 139/95
== END 2019-08-05 06:15 | disposition home or self-care (01) ==
LOC: SDS 06:14
PROVIDERS: ATTEND Obstetrics & Gynecology
PROC: 10T24ZZ Resection of Products of Conception, Ectopic, Percutaneous Endoscopic Approach (ICD-10-PCS; principal; 2019-08-05 07:30)
PROC: 0UT54ZZ Resection of Right Fallopian Tube, Percutaneous Endoscopic Approach (ICD-10-PCS; 2019-08-05 07:30)
DX: O00.101 Right tubal pregnancy without intrauterine pregnancy (principal); J45.909 Unspecified asthma, uncomplicated; E66.9 Obesity, unspecified; Z68.41 Body mass index [BMI] 40.0-44.9, adult
CPT/HCPCS: 59151; 81001; 84702; 85025; A9270; J0131; J2765; J3490; J7120; 81003; 87086

== ENCOUNTER 2019-08-11 22:17 | Emergency (ER) | payer MEDICAID ==
[2019-08-11] MEDS ORDERED: DEXAMETHASONE 10 MG/ML VIAL PO STA (23:22)
[2019-08-11] MEDS ORDERED: CHERRY SYRUP 10 ML UDC PO ONE (23:22)
--- NOTE | 2019-08-11 23:25 | ED Physician Documentation ---
History of Present Illness - Stated complaint Stated Complaint: SOA/TROUBLE SWOLLOWING - Chief complaint Chief Complaint: Abd Pain - History obtained from History obtained from: Patient - History of Present Illness Timing: How many weeks ago (1) Severity Comments: moderate throat pain, cough Quality: feels like she has something stuck in her throat Radiates to: none Improved by: nothing Worsened by: eating and drinking, swallowing Associated symptoms: Denies fever. Reports a cough that is nonproductive. Denies chest pain, sob or wheezing. - Treatment prior to arrival Treatment prior to arrival: none - Additonal information Additional information: She is 1 week s/p ectopic surgery and was intubated for this . She felt the throat pain and cough start just prior to the surgery Today she ate a bagel and it felt like that and a pill were getting caught in her throat. She is able to swallow and is tolerating fluids without difficulty. Review of Systems Ten Systems: 10 systems reviewed and negative Constitutional: reports: Fatigue. denies: Fever, Chills Eyes: reports: Reviewed and negative Ears: reports: Reviewed and negative Nose: reports: Reviewed and negative Throat: reports: Sore throat Cardiac: reports: Reviewed and negative Respiratory: reports: Cough. denies: Dyspnea GI: denies: Abdominal Pain, Nausea, Vomiting Skin: reports: Reviewed and negative Neurologic: reports: Reviewed and negative Immunocompromised: reports: Reviewed and negative PD PAST MEDICAL HISTORY - Past Medical History Past Medical History: Yes Cardiovascular: Other Respiratory: Asthma Neuro: None Endocrine/Autoimmune: Other GI: None RUSSIAN RUBBER: None : None HEENT: None Psych: None Musculoskeletal: None Derm: None - Past Surgical History Past Surgical History: Yes /RUSSIAN RUBBER: section - Present Medications Home Medications: Ambulatory Orders Medication Instructions Recorded Confirmed Albuterol Sulf [Ventolin Hfa 1 - 2 puffs INH Q4HR PRN #1 inhaler 05/08/18 08/05/19 Inhaler] Multivitamin [Daily Multiple 1 each PO DAILY 08/03/19 08/05/19 Vitamin] - Allergies Allergies/Adverse Reactions: Allergies Allergy/AdvReac Type Severity Reaction Status Date / Time meperidine HCl * Allergy Hives Verified 08/11/19 22:23 [From Demerol] - Social History Does the pt smoke?: No Smoking Status: Never smoker Does the pt drink ETOH?: Yes Does the pt have substance abuse?: No - Immunizations Immunizations are current?: Yes - POLST Patient has POLST: No PD ED PE NORMAL - Vitals Vital signs reviewed: Yes - General General: Alert and oriented X 3, No acute distress, Well developed/nourished - HEENT HEENT: Atraumatic, Moist mucous membranes - Neck Neck: Supple, no meningeal sign, No JVD - Cardiac Cardiac: RRR, No murmur, No gallop, No rub - Respiratory Respiratory: No respiratory distress, Clear bilaterally - Abdomen Abdomen: Soft, Non tender, Non distended - Female Female : Deferred - Rectal Rectal: Deferred - Derm Derm: Normal color, Warm and dry, No rash - Neuro Neuro: Alert and oriented X 3 Eye Opening: Spontaneous Motor: Obeys Commands Verbal: Oriented GCS Score: 15 - Psych Psych: Normal mood, Normal affect PD ED PE EXPANDED - HEENT HEENT: Atraumatic, Pharyngeal erythema, Other (edematous uvula, erythematous posterior pharynx. uvula is midline. no trismus or drooling, normal voice ). No: Nasal congestion, Swollen tonsils, Tonsillar exudate - Neck Neck: Supple w/out meningeal sx, Other (no stridor) - Respiratory Respiratory: No: Distress, Labored, Stridor Results - Vitals Vitals: Vital Signs - 24 hr 08/11/19 08/11/19 22:23 23:27 Temperature 36.5 C Heart Rate 91 86 Respiratory 16 20 Rate Blood Pressure 144/94 H 168/115 H O2 Saturation 100 100 Oxygen O2 Source Room air PD MEDICAL DECISION MAKING - ED course Complexity details: re-evaluated patient, considered differential, d/w patient ED course: ddx- uvulitis, pharyngitis, adverse effect of intubation, dysphagia, PRINCIPAL DEVELOPER, foreign body in trachea or esophagus, food bolus impaction 29 y/o F with hx and exam as documented, has an obvious uvulitis on examination that I suspect is causing her symptoms. She is tolerating fluids and handling secretions and has a normal voice. I do not feel she has a FB in her airway or esophagus. Given a dose of decadron for her uvulitis and pt is stable for discharge with continued supportive care and outpt f/u Discussed return precautions if she is unable to drink fluids or handle secretions, has a change in voice, sob or has new concerning symptoms. Departure - Departure Disposition: 01 Home, Self Care Clinical Impression: Uvulitis Condition: Stable Record reviewed to determine appropriate education?: Yes Instructions: ED Uvulitis Follow-Up: Mickey Flores ND [Primary Care Provider] - As Needed Comments: You were given a steroid to decrease swelling in the back of your throat. Your exam showed uvulitis which is usually a viral illness causing inflammation and swelling of your uvula. You can also take ibuprofen as needed for pain and to reduce swelling. You likely also have some irritation from being intubated for your surgery. Both issues should improve within a week. Return to the ED if you are unable to swallow liquids. otherwise follow up with your regular doctor if symptoms persist in a week. Discharge Date/Time: 08/11/19 23:30
[2019-08-11 23:28] VITALS: BP 168/115
== END 2019-08-11 23:30 | disposition home or self-care (01) ==
LOC: ED 22:17
DX: K12.2 Cellulitis and abscess of mouth (principal); Z98.890 Other specified postprocedural states
CPT/HCPCS: 99282; A9270

== ENCOUNTER 2019-10-27 08:56 | Emergency (ER) | payer MEDICAID ==
--- NOTE | 2019-10-27 10:07 | ED Physician Documentation ---
PD HPI URI - Stated complaint Stated Complaint: SOA/CONGESTED - Chief complaint Chief Complaint: Resp - History obtained from History obtained from: Patient - History of Present Illness Timing - onset: How many days ago (4-5) Timing duration: Days Timing details: Gradual onset, Still present Associated symptoms: Fever, Productive cough, Dyspnea (with wheezing due to her asthma). No: Chest pain, NVD Contributing factors: COPD / asthma. No: Sick contact, Immunocompromised Improves by: MDI/nebulizer (using MDI; is out of meds for her nebulizer.) Similar symptoms before: Diagnosis (has exac of her asthma with infections in the past.) Recently seen: Not recently seen Review of Systems Constitutional: reports: Fever, Myalgias Nose: reports: Congestion Throat: denies: Sore throat Cardiac: denies: Palpitations Respiratory: reports: Dyspnea, Cough, Wheezing GI: denies: Vomiting, Diarrhea Skin: denies: Rash Neurologic: reports: Generalized weakness. denies: Focal weakness, Numbness, Near syncope PD PAST MEDICAL HISTORY - Past Medical History Cardiovascular: Other Respiratory: Asthma Neuro: None Endocrine/Autoimmune: Other GI: None HEALTH SANITARIAN: None : None HEENT: None Psych: None Musculoskeletal: None Derm: None - Past Surgical History Past Surgical History: Yes /HEALTH SANITARIAN: section - Present Medications Home Medications: Ambulatory Orders Medication Instructions Recorded Confirmed Albuterol Sulf [Ventolin Hfa 1 - 2 puffs INH Q4HR PRN #1 inhaler 05/08/18 08/05/19 Inhaler] Multivitamin [Daily Multiple 1 each PO DAILY 08/03/19 08/05/19 Vitamin] Albuterol 2.5 mg INH Q4H PRN #30 neb 10/27/19 Albuterol Sulf [Ventolin Hfa 1 - 2 puffs INH Q4HR PRN #1 inhaler 10/27/19 Inhaler] Benzonatate [Tessalon Perle] 100 mg PO TID PRN #30 capsule 10/27/19 Doxycycline Monohydrate 100 mg PO BID #14 tablet 10/27/19 dexAMETHasone [Decadron] 4 mg PO DAILY #5 tablet 10/27/19 - Allergies Allergies/Adverse Reactions: Allergies Allergy/AdvReac Type Severity Reaction Status Date / Time meperidine HCl * Allergy Hives Verified 10/27/19 09:09 [From Demerol] - Social History Does the pt smoke?: No Smoking Status: Never smoker Does the pt drink ETOH?: Yes Does the pt have substance abuse?: No - Immunizations Immunizations are current?: Yes - POLST Patient has POLST: No PD ED PE NORMAL - Vitals Vital signs reviewed: Yes - General General: Alert and oriented X 3, No acute distress, Well developed/nourished - HEENT HEENT: Ears normal, Moist mucous membranes, Pharynx benign - Neck Neck: Supple, no meningeal sign, No adenopathy - Cardiac Cardiac: RRR, No murmur - Respiratory Respiratory: No: Clear bilaterally (wheezes diffusely without work of breathing. ) - Abdomen Abdomen: Soft, Non tender - Derm Derm: Normal color, Warm and dry, No rash - Neuro Neuro: Alert and oriented X 3, No motor deficit, Normal speech Results - Vitals Vitals: Vital Signs - 24 hr 10/27/19 10/27/19 10/27/19 09:06 10:40 11:08 Temperature 36.4 C L Heart Rate 92 88 82 Respiratory 16 16 16 Rate Blood Pressure 154/104 H 171/112 H O2 Saturation 98 96 Oxygen O2 Source Room air PD MEDICAL DECISION MAKING - ED course Complexity details: considered differential, d/w patient Departure - Departure Disposition: 01 Home, Self Care Clinical Impression: Upper respiratory infection Qualifiers: URI type: unspecified URI Qualified Code(s): J06.9 - Acute upper respiratory infection, unspecified Exacerbation of asthma Qualifiers: Asthma severity: mild Asthma persistence: intermittent Qualified Code(s): J45.21 - Mild intermittent asthma with (acute) exacerbation Condition: Stable Record reviewed to determine appropriate education?: Yes Follow-Up: Mickey Flores ND [Primary Care Provider] - Prescriptions: Albuterol Sulf [Ventolin Hfa Inhaler] 1 - 2 puffs INH Q4HR PRN #1 inhaler PRN Reason: Shortness Of Air/Wheezing Albuterol 2.5 mg INH Q4H PRN #30 neb PRN Reason: Wheezing Benzonatate [Tessalon Perle] 100 mg PO TID PRN #30 capsule PRN Reason: Cough dexAMETHasone [Decadron] 4 mg PO DAILY #5 tablet Doxycycline Monohydrate 100 mg PO BID #14 tablet Comments: Use your albuterol inhaler or nebulizer 4 times a day for the next week and extra times as needed for wheezing and cough. At Decadron steroid daily for the next several days to reduce inflammation and cough. Tessalon if needed for cough suppression. Stay well-hydrated and Tylenol or ibuprofen for fevers and aches. This is most likely viral and you can see how you do over the next couple of days. I wrote for an antibiotic doxycycline twice daily for a week should your symptoms worsen or not improve well over the next few days. Forms: Activity restrictions Discharge Date/Time: 10/27/19 11:09
[2019-10-27] MEDS ORDERED: CHERRY SYRUP 10 ML UDC PO ONE (10:26)
[2019-10-27] MEDS ORDERED: ALBUTEROL NEB 2.5 MG/3 ML INH STA (10:26)
[2019-10-27] MEDS ORDERED: ONDANSETRON ODT 4 MG TABLET TL STA (10:26)
[2019-10-27] MEDS ORDERED: BENZONATATE 100 MG CAPSULE PO STA (10:26)
[2019-10-27] MEDS ORDERED: DEXAMETHASONE 10 MG/ML VIAL PO STA (10:26)
[2019-10-27 11:10] VITALS: BP 171/112
== END 2019-10-27 11:09 | disposition home or self-care (01) ==
LOC: ED 08:56
DX: J06.9 Acute upper respiratory infection, unspecified (principal); J45.21 Mild intermittent asthma with (acute) exacerbation
CPT/HCPCS: 94640; 99283; 99284; A9270

== ENCOUNTER 2019-12-11 10:55 | Emergency (ER) | payer MEDICAID ==
[2019-12-11 11:05] VITALS: BP 157/90
[2019-12-11] MEDS ORDERED: ALBUTEROL NEB 2.5 MG/3 ML INH STA (12:27)
--- NOTE | 2019-12-11 12:28 | ED Physician Documentation ---
PD HPI CHEST PAIN - Stated complaint Stated Complaint: SOA - Chief complaint Chief Complaint: Resp - History obtained from History obtained from: Patient - History of Present Illness Timing - onset: Other (29-year-old woman with history of ectopic and asthma presents with 2 days of constant right-sided chest pain that she feels like a bubble or not in her chest that is worse with deep breathing and coughing. No increased cough. Mild increase in shortness of breath. Mild right thigh pain. No history of DVT or PE. No recent travel.) Review of Systems Constitutional: denies: Fever, Chills Nose: reports: Congestion. denies: Rhinorrhea / runny nose Throat: denies: Sore throat Cardiac: reports: Chest pain / pressure. 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 - Present Medications Home Medications: Ambulatory Orders Medication Instructions Recorded Confirmed Albuterol Sulf [Ventolin Hfa 1 - 2 puffs INH Q4HR PRN #1 inhaler 05/08/18 08/05/19 Inhaler] Multivitamin [Daily Multiple 1 each PO DAILY 08/03/19 08/05/19 Vitamin] Albuterol 2.5 mg INH Q4H PRN #30 neb 10/27/19 Albuterol Sulf [Ventolin Hfa 1 - 2 puffs INH Q4HR PRN #1 inhaler 10/27/19 Inhaler] Benzonatate [Tessalon Perle] 100 mg PO TID PRN #30 capsule 10/27/19 Doxycycline Monohydrate 100 mg PO BID #14 tablet 10/27/19 dexAMETHasone [Decadron] 4 mg PO DAILY #5 tablet 10/27/19 Albuterol Sulf [Ventolin Hfa 1 - 2 puffs INH Q4HR PRN #1 inhaler 12/11/19 Inhaler] - Allergies Allergies/Adverse Reactions: Allergies Allergy/AdvReac Type Severity Reaction Status Date / Time meperidine HCl * Allergy Hives Verified 10/27/19 09:09 [From Demerol] - Social History Does the pt smoke?: No Smoking Status: Never smoker Does the pt drink ETOH?: Yes Does the pt have substance abuse?: No - Immunizations Immunizations are current?: Yes - POLST Patient has POLST: No PD ED PE NORMAL - Vitals Vital signs reviewed: Yes - General General: Alert and oriented X 3, No acute distress - HEENT HEENT: PERRL, EOMI - Neck Neck: Supple, no meningeal sign, No bony TTP - Cardiac Cardiac: RRR, No murmur - Respiratory Respiratory: No respiratory distress, Clear bilaterally - Abdomen Abdomen: Non tender - Extremities Extremities: No edema, No calf tenderness / cord - Neuro Neuro: Alert and oriented X 3, Normal speech Results - Vitals Vitals: Vital Signs - 24 hr 12/11/19 12/11/19 11:01 12:41 Temperature 37.0 C Heart Rate 99 90 Respiratory 16 16 Rate Blood Pressure 157/90 H O2 Saturation 99 Oxygen O2 Source Room air - EKG (time done) 1236 Rate: Rate (enter#) (91) Rhythm: NSR [place]: Normal Intervals: Normal [place] QRS: Normal Ischemia: Non specific changes Computer interpretation: Agree with computer - Labs Labs: Laboratory Tests 12/11/19 12/11/19 12/11/19 12:39 12:49 12:49 WBC 13.6 H RBC 4.78 Hgb 13.8 Hct 41.4 MCV 86.6 MCH 28.9 MCHC 33.3 RDW 12.7 Plt Count 336 MPV 8.7 Neut # (Auto) 8.8 H Lymph # (Auto) 3.8 H [place] # (Auto) 0.6 Eos # (Auto) 0.2 Baso # (Auto) 0.1 Absolute Nucleated RBC 0.00 Nucleated RBC % 0.0 D-Dimer Sodium 135 Potassium 3.5 Chloride 96 L Carbon Dioxide 25 Anion Gap 14.0 H BUN 14 Creatinine 0.8 Estimated GFR (MDRD) 84 L Glucose 99 Calcium 9.6 Total Bilirubin 0.9 AST 23 ALT 30 Alkaline Phosphatase 53 Total Protein 7.9 Albumin 4.6 Globulin 3.3 Albumin/Globulin Ratio 1.4 Lipase 24 Urine Color YELLOW Urine Clarity CLEAR Urine pH 7.0 Ur Specific [place] 1.010 Urine Protein TRACE Urine Glucose (UA) NEGATIVE Urine Ketones NEGATIVE Urine Occult Blood NEGATIVE Urine Nitrite NEGATIVE Urine Bilirubin NEGATIVE Urine Urobilinogen 0.2 (NORMAL) Ur Leukocyte Esterase NEGATIVE Ur Microscopic Review NOT INDICATED Urine Culture Comments NOT INDICATED Urine HCG, Qual NEGATIVE 12/11/19 12:49 WBC RBC Hgb Hct MCV MCH MCHC RDW Plt Count MPV Neut # (Auto) Lymph # (Auto) [place] # (Auto) Eos # (Auto) Baso # (Auto) Absolute Nucleated RBC Nucleated RBC % D-Dimer < 200.0 L Sodium Potassium Chloride Carbon Dioxide Anion Gap BUN Creatinine Estimated GFR (MDRD) Glucose Calcium Total Bilirubin AST ALT Alkaline Phosphatase Total Protein Albumin Globulin Albumin/Globulin Ratio Lipase Urine Color Urine Clarity Urine pH Ur Specific [place] Urine Protein Urine Glucose (UA) Urine Ketones Urine Occult Blood Urine Nitrite Urine Bilirubin Urine Urobilinogen Ur Leukocyte Esterase Ur Microscopic Review Urine Culture Comments Urine HCG, Qual PD MEDICAL DECISION MAKING - ED course Complexity details: considered differential (ACS is very unlikely given the normal EKG and young age as well as atypical description. PE is considered, but d-dimer is negative. Pneumothorax and pneumonia would have shown up on x-ray.) Departure - Departure Disposition: Home, Self Care Clinical Impression: Chest pain Qualifiers: Chest pain type: chest pain on breathing Qualified Code(s): R07.1 - Chest pain on breathing; R07.81 - Pleurodynia Condition: Good Record reviewed to determine appropriate education?: Yes Instructions: ED Chest Pain NonCardiac Prescriptions: Albuterol Sulf [Ventolin Hfa Inhaler] 1 - 2 puffs INH Q4HR PRN #1 inhaler PRN Reason: Shortness Of Air/Wheezing Comments: You were seen today for what we call atypical chest pain, based on the negative work-up this is most likely due to either pleurisy or muscular etiology. Testing for heart issues and blood clots as well as the chest x-ray were negative. Call your doctor to arrange a follow-up appointment, make the next available appointment. In the interim, return anytime if worse or if new symptoms develop. Your blood pressure was elevated today on check into the emergency department. This does not mean that you have hypertension, it is a common phenomenon to come to the emergency department and have elevated blood pressure. I recommend that you see your primary care physician within the week to have it rechecked when you are feeling better. Forms: Activity restrictions
[2019-12-11 12:46] LABS: BILIRUBIN,URINE NEGATIVE (NEGATIVE); GLUCOSE, URINE (UA) NEGATIVE (NEGATIVE); KETONES,URINE (UA) NEGATIVE (NEGATIVE); LEUKOCYTE ESTERASE, URINE NEGATIVE (NEGATIVE); NITRITE,URINE NEGATIVE (NEGATIVE); OCCULT BLOOD,URINE NEGATIVE (NEGATIVE); PROTEIN,URINE TRACE mg/dL (NEGATIVE); UROBILINOGEN,URINE 0.2 (NORMAL) E.U./dL (NORMAL)
[2019-12-11 12:48] LABS: CLARITY,URINE CLEAR (CLEAR); HCG UR QUAL NEGATIVE
[2019-12-11 12:54] LABS: BASOPHILS # (AUTO) 0.1 10^3/uL (0.0-0.1); BASOPHILS % (AUTO) 0.6 %; EOSINOPHILS # (AUTO) 0.2 10^3/uL (0.0-0.7); EOSINOPHILS % (AUTO) 1.7 %; HGB - HEMOGLOBIN 13.8 g/dL (12.0-16.0); LYMPHOCYTES # (AUTO) 3.8 10^3/uL (1.5-3.5); LYMPHOCYTES % (AUTO) 27.8 %; MEAN CORPUSCULAR HEMOGLOBIN 28.9 pg (27.0-31.0); MEAN CORPUSCULAR HGB CONC 33.3 g/dL (32.0-36.0); MEAN CORPUSCULAR VOLUME 86.6 fL (81.0-99.0); MEAN PLATELET VOLUME 8.7 fL (7.9-10.8); MONOCYTES # (AUTO) 0.6 10^3/uL (0.0-1.0); MONOCYTES % (AUTO) 4.5 %; NEUTROPHILS # (AUTO) 8.8 10^3/uL (1.5-6.6); NEUTROPHILS % (AUTO) 64.7 %; PLT - PLATELET COUNT 336 10^3/uL (130-450); RED BLOOD COUNT 4.78 10^6/uL (4.20-5.40); RED CELL DISTRIBUTION WIDTH 12.7 % (12.0-15.0); WHITE BLOOD COUNT 13.6 x10^3/uL (4.8-10.8)
[2019-12-11 13:07] LABS: ALBUMIN 4.6 g/dL (3.2-5.5); ALBUMIN/GLOBULIN RATIO 1.4 (1.0-2.2); BILIRUBIN,TOTAL 0.9 mg/dL (0.2-1.0); CALCIUM 9.6 mg/dL (8.5-10.3); CREATININE 0.8 mg/dL (0.4-1.0); TOTAL PROTEIN 7.9 g/dL (6.7-8.2)
[2019-12-11] MEDS ORDERED: ALBUTEROL NEB 2.5 MG/3 ML INH ONE (13:28)
--- NOTE | 2019-12-11 13:30 | XRAY Report ---
Reason: R chest pain Procedure Date: 12/11/2019 Accession Number: [id number] / [id number] Procedure: XR - Chest 2 View X-Ray CPT Code: 33805 Final Report FULL RESULT: EXAM: CHEST RADIOGRAPHY EXAM DATE: 12/11/2019 01:21 PM. CLINICAL HISTORY: Right chest pain. COMPARISON: XR CHEST PA AND LAT 02/09/2011 1:36 AM. TECHNIQUE: 2 views. FINDINGS: Lungs/Pleura: No focal opacities evident. No pleural effusion. No pneumothorax. Normal volumes. Mediastinum: Heart and mediastinal contours are unremarkable. Other: None. IMPRESSION: No acute cardiopulmonary abnormality. RADIA
== END 2019-12-11 13:52 | disposition home or self-care (01) ==
LOC: ED 10:55
DX: R07.81 Pleurodynia (principal); R07.1 Chest pain on breathing; J45.909 Unspecified asthma, uncomplicated; R03.0 Elevated blood-pressure reading, without diagnosis of hypertension
CPT/HCPCS: 36415; 71046; 80053; 81001; 81003; 81025; 83690; 85025; 85379; 87086; 93005; 94664; 99284

== ENCOUNTER 2024-04-18 06:12 | Emergency (ER) | payer MEDICAID ==
--- NOTE | 2024-04-18 07:23 | ED Physician Documentation ---
PD HPI HEENT - Stated complaint Stated Complaint: SWOLLEN FACE - Chief complaint Chief Complaint: Heent - History obtained from History obtained from: Patient - History of Present Illness Timing - onset: Today Timing - duration: Hours Timing - details: Gradual onset, Still present Location: Throat Improves: Nothing Worsens: Swalllowing Associated symptoms: Swollen nodes, Facial swelling, Cough. No: Fever, Congestion, Rhinorrhea, Trismus Similar symptoms before: Has not had sx before Recently seen: Not recently seen - Additional information Additional information: Michelle Corral is a 34-year-old female with a history of hypertension who is on losartan. She presents today to the emergency department with swelling to her lips and face. She has not had this happen to her previously. She was in the emergency department last night with her son who has had strep and has been treated for it and he was having an allergic reaction to amoxicillin. The p atient denies more shortness of breath than usual she does have a history of asthma she has a slight cough. She feels that her throat is itching her face is sensitive and itching her lips are swollen her tongue is mildly swollen.She has been on the losartan for 3 years. Review of Systems Constitutional: denies: Fever Eyes: denies: Decreased vision Ears: denies: Ear pain Nose: denies: Rhinorrhea / runny nose, Congestion Throat: reports: Sore throat, Swollen tonsils, Other (itchy feeling and full feeling) Cardiac: denies: Chest pain / pressure, Palpitations, Pedal edema, Calf pain Respiratory: reports: Cough. denies: Dyspnea, Hemoptysis, Wheezing GI: denies: Abdominal Pain, Nausea, Vomiting, Constipation, Diarrhea : denies: Dysuria, Frequency Skin: denies: Rash Musculoskeletal: denies: Neck pain, Back pain, Extremity pain Neurologic: denies: Generalized weakness, Focal weakness, Numbness PD PAST MEDICAL HISTORY - Past Medical History Cardiovascular: Other Respiratory: Asthma Neuro: None Endocrine/Autoimmune: Other GI: None FIBER ARTIST: None : None HEENT: None Psych: None Musculoskeletal: None Derm: None - Past Surgical History Past Surgical History: Yes /FIBER ARTIST: section - Present Medications Home Medications: Ambulatory Orders Medication Instructions Recorded Confirmed Albuterol Sulf [Ventolin Hfa 1 - 2 puffs INH Q4HR PRN #1 inhaler 05/08/18 08/05/19 Inhaler] Multivitamin [Daily Multiple 1 each PO DAILY 08/03/19 08/05/19 Vitamin] Albuterol 2.5 mg INH Q4H PRN #30 neb 10/27/19 Albuterol Sulf [Ventolin Hfa 1 - 2 puffs INH Q4HR PRN #1 inhaler 10/27/19 Inhaler] Benzonatate [Tessalon Perle] 100 mg PO TID PRN #30 capsule 10/27/19 Doxycycline Monohydrate 100 mg PO BID #14 tablet 10/27/19 dexAMETHasone [Decadron] 4 mg PO DAILY #5 tablet 10/27/19 Albuterol Sulf [Ventolin Hfa 1 - 2 puffs INH Q4HR PRN #1 inhaler 12/11/19 Inhaler] - Allergies Allergies/Adverse Reactions: Allergies Allergy/AdvReac Type Severity Reaction Status Date / Time meperidine HCl * Allergy Hives Verified 10/27/19 09:09 [From Demerol] - Social History Does the pt smoke?: No Smoking Status: Never smoker Does the pt drink ETOH?: Yes Does the pt have substance abuse?: No - Immunizations Immunizations are current?: Yes - POLST Patient has POLST: No PD ED PE NORMAL - Vitals Vital signs reviewed: Yes (tachy and hypertensive) - HEENT HEENT: Atraumatic, PERRL, EOMI, Ears normal, Other (The lips are swollen there is some mild swelling to the face as well tonsils are 2+ cryptic without exudate there is mild generalized swelling to the posterior pharynx mild swelling to the tongue as well. No eminent obstruction of the airway) - Neck Neck: Supple, no meningeal sign, No bony TTP - Cardiac Cardiac: RRR, No murmur - Respiratory Respiratory: No respiratory distress, Clear bilaterally - Abdomen Abdomen: Soft, Non tender - Back Back: No CVA TTP, No spinal TTP - Derm Derm: Normal color, Warm and dry, No rash - Extremities Extremities: No deformity, No edema - Neuro Neuro: Alert and oriented X 3, practical nursing faculty 2-12 intact, No motor deficit, No sensory deficit, Normal speech Eye Opening: Spontaneous Motor: Obeys Commands Verbal: Oriented GCS Score: 15 - Psych Psych: Normal mood, Normal affect Results - Vitals Vitals: Vital Signs - 24 hr 04/18/24 06:23 Temperature 36.5 C Heart Rate 115 H Respiratory 20 Rate Blood Pressure 149/105 H O2 Saturation 100 Oxygen O2 Source Room air - Labs Labs: Laboratory Tests 04/18/24 07:54 Group A Strep Rapid Negative PD Medical Decision Making - ED course Complexity details: considered differential, d/w patient, d/w family ED course: 34-year-old female presents emerged part with a swelling to her lips and face as well as her tongue and posterior pharynx. She has both exposure to strep and she is on losartan. We treated in the emergency department with dexamethasone and Benadryl and we have obtained a specimen for a rapid strep. Departure - Departure Disposition: Home, Self Care Clinical Impression: Angio-edema Qualifiers: Encounter type: initial encounter Qualified Code(s): T78.3XXA - Angioneurotic edema, initial encounter Condition: Stable Instructions: ED Angioedema Follow-Up: KIYA OLVERA MD [Physician No Access] - Comments: February, today that the reaction you have had to your face with the swelling of your lips and tongue and throat appears to be related to the medication you are taking for your blood pressure. Our recommendation at is to discontinue the use of the losartan and avoid this class of medication in the future. A follow-up with your primary care doctor is indicated to replace this agent as needed. In the meantime take 25 to 50 mg of Benadryl every 6 hours for the next 2 days. Our expectations are continued improvement in the amount of swelling throughout the day today and resolution within 2 days. If you are having worsening of symptoms return to the emergency department for further treatment. Forms: Activity restrictions
[2024-04-18] MEDS: diphenhydrAMINE INJ 50 MG/ML VIAL IM STA (07:47)
[2024-04-18] MEDS: CHERRY SYRUP 10 ML UDC PO ONE (07:48)
[2024-04-18] MEDS: DEXAMETHASONE 10 MG/ML VIAL PO STA (07:48)
[2024-04-18 08:09] LABS: RAPID STREP SCREEN Negative (Negative)
[2024-04-18 09:38] VITALS: BP 153/108; O2SAT 99
== END 2024-04-18 09:37 | disposition home or self-care (01) ==
LOC: ED 06:12
DX: T78.3XXA Angioneurotic edema, initial encounter (principal)
CPT/HCPCS: 87070; 87077; 87430; 96372; 99284

== ENCOUNTER 2024-04-18 12:28 | Emergency (ER) | payer MEDICAID ==
--- NOTE | 2024-04-18 14:57 | ED Physician Documentation ---
History of Present Illness - Stated complaint Stated Complaint: THROAT IRRITATION - Chief complaint Chief Complaint: Resp - History obtained from History obtained from: Patient, Family - History of Present Illness Timing: Today - Additonal information Additional information: Michelle Corral is a 34-year-old female who has been on losartan and she developed angioedema last night at about midnight. She took a dose of losartan following that at about 3:00 in the morning. She came into the emergency department earlier this morning and she had swelling to her face lips and throat. She had improvement with the use of dexamethasone and Benadryl and this afternoon her symptoms began to return. She is come back to the emergency department for further treatment. She feels the restriction she has to her airway is in the upper airway and not in her lungs. She is having some difficulty swallowing secondary to the swelling.She was able to take a dose of Benadryl about 1030 this morning. Review of Systems Constitutional: denies: Fever Eyes: denies: Decreased vision Ears: denies: Ear pain Nose: denies: Congestion Throat: reports: Sore throat, Swollen tonsils Cardiac: denies: Chest pain / pressure, Palpitations Respiratory: reports: Dyspnea. 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: section - Present Medications Home Medications: Ambulatory Orders Medication Instructions Recorded Confirmed Albuterol Sulf [Ventolin Hfa 1 - 2 puffs INH Q4HR PRN #1 inhaler 05/08/18 08/05/19 Inhaler] Multivitamin [Daily Multiple 1 each PO DAILY 08/03/19 08/05/19 Vitamin] Albuterol 2.5 mg INH Q4H PRN #30 neb 10/27/19 Albuterol Sulf [Ventolin Hfa 1 - 2 puffs INH Q4HR PRN #1 inhaler 10/27/19 Inhaler] Benzonatate [Tessalon Perle] 100 mg PO TID PRN #30 capsule 10/27/19 Doxycycline Monohydrate 100 mg PO BID #14 tablet 10/27/19 dexAMETHasone [Decadron] 4 mg PO DAILY #5 tablet 10/27/19 Albuterol Sulf [Ventolin Hfa 1 - 2 puffs INH Q4HR PRN #1 inhaler 12/11/19 Inhaler] - Allergies Allergies/Adverse Reactions: Allergies Allergy/AdvReac Type Severity Reaction Status Date / Time meperidine HCl * Allergy Hives Verified 04/18/24 16:54 [From Demerol] losartan AdvReac Severe angio edema Uncoded 04/18/24 16:54 - Social History Does the pt smoke?: No Smoking Status: Never smoker Does the pt drink ETOH?: Yes Does the pt have substance abuse?: No - Immunizations Immunizations are current?: Yes - POLST Patient has POLST: No PD ED PE NORMAL - Vitals Vital signs reviewed: Yes (Hypertensive mild) - General General: Alert and oriented X 3, No acute distress, Well developed/nourished - HEENT HEENT: Atraumatic, PERRL, EOMI, Other (There is general swelling to the face and lips less than what she had earlier today on presentation. She does have some swelling to the tonsils there are 2+ cryptic with minimal exudate minimal swelling to the tongue improved from previous.) - Neck Neck: Supple, no meningeal sign, No bony TTP - Cardiac Cardiac: RRR, No murmur - Respiratory Respiratory: No respiratory distress, Clear bilaterally - Abdomen Abdomen: Normal bowel sounds, Soft, Non tender, Non distended, No organomegaly - Back Back: No CVA TTP, No spinal TTP - Derm Derm: Normal color, Warm and dry, No rash - Extremities Extremities: No deformity, No edema - Neuro Neuro: Alert and oriented X 3, reed repairer 2-12 intact, No motor deficit, No sensory deficit, Normal speech Eye Opening: Spontaneous Motor: Obeys Commands Verbal: Oriented GCS Score: 15 - Psych Psych: Normal mood, Normal affect Results - Vitals Vitals: Vital Signs - 24 hr 04/18/24 04/18/24 04/18/24 13:10 15:38 17:09 Temperature 36.3 C L Heart Rate 98 105 H 78 Respiratory 18 16 Rate Blood Pressure 143/82 H 146/90 H O2 Saturation 100 97 99 Oxygen O2 Source Room air PD Medical Decision Making - ED course Complexity details: considered differential, d/w patient, d/w family ED course: 34-year-old female with angioedema secondary to an VICKIE inhibitor has taken a dose of losartan after her symptoms began. She took this dose at about 3 AM and presented to the emergency department early this morning. She was treated improved and now has recurrence of her symptoms. This afternoon she is retreated with dexamethasone and Benadryl and we will give her a dose of tranexamic acid 1 g IV. The patient has further improvement and is discharged to home again. Departure - Departure Disposition: Home, Self Care Clinical Impression: Angio-edema Qualifiers: Encounter type: subsequent encounter Qualified Code(s): T78.3XXD - Angioneurotic edema, subsequent encounter Condition: Stable Instructions: ED Angioedema Follow-Up: KIYA OLVERA MD [Physician No Access] - Comments: February, today your angioedema has been resistant to our initial treatment and we were able to treat you with tranexamic acid which appears to have helped. Continue to take the Benadryl and return if you are having difficulty breathing. Forms: PCP List Discharge Date/Time: 04/18/24 17:09
[2024-04-18] MEDS: CHERRY SYRUP 10 ML UDC PO ONE (14:59)
[2024-04-18] MEDS: diphenhydrAMINE INJ 50 MG/ML VIAL IM STA (14:59)
[2024-04-18] MEDS: DEXAMETHASONE 10 MG/ML VIAL PO STA (14:59)
[2024-04-18] MEDS: TRANEXAMIC ACID IN NACL 1,000 MG/100 ML BAG IV STA (15:11)
[2024-04-18 15:46] VITALS: BP 146/90
[2024-04-18 17:15] VITALS: O2SAT 99
== END 2024-04-18 17:09 | disposition home or self-care (01) ==
LOC: ED 12:28
DX: T78.3XXA Angioneurotic edema, initial encounter (principal); T88.7XXA Unspecified adverse effect of drug or medicament, initial encounter; T46.5X5A Adverse effect of other antihypertensive drugs, initial encounter
CPT/HCPCS: 87070; 87077; 87430; 96365; 96372; 99284; A9270; J1200

== ENCOUNTER 2024-04-20 08:49 | Emergency (ER) | payer MEDICAID ==
[2024-04-20 09:44] LABS: RAPID STREP SCREEN Negative (Negative)
[2024-04-20 10:26] LABS: B. PARAPERTUSSIS- RESP PCR PAN NOT DETECTED; B. PERTUSSIS- RESP PCR PANEL NOT DETECTED; C. PNEUMONIAE- RESP PCR PANEL NOT DETECTED; CORONAVIRUS 229E-RESP PCR NOT DETECTED; CORONAVIRUS HKU1-RESP PCR NOT DETECTED; CORONAVIRUS NL63-RESP PCR NOT DETECTED; CORONAVIRUS OC43-RESP PCR NOT DETECTED; HUMAN METAPNEUMOVIRUS NOT DETECTED; INFLUENZA A- RESP PCR PANEL NOT DETECTED; INFLUENZA B - RESP PCR PANEL NOT DETECTED; M. PNEUMONIAE- RESP PCR PANEL NOT DETECTED; PARAINFLUENZA VIRUS 1 NOT DETECTED; PARAINFLUENZA VIRUS 2 NOT DETECTED; PARAINFLUENZA VIRUS 3 NOT DETECTED; PARAINFLUENZA VIRUS 4 NOT DETECTED; RHINOVIRUS/ENTEROVIRUS DETECTED; RSV- RESP PCR PANEL NOT DETECTED; SARS-CoV-2 -RESP PCR PANEL NOT DETECTED
--- NOTE | 2024-04-20 11:12 | ED Physician Documentation ---
History of Present Illness - Stated complaint Stated Complaint: SOA,THROAT PX/SWELLING,RASH - Chief complaint Chief Complaint: General - History obtained from History obtained from: Patient - Additonal information Additional information: She has a history of hypertension and was on losartan. Over the weekend she developed swelling of the lips and was seen here and treated with steroids and Benadryl for presumed angioedema related to her losartan. Over the last day or 2 has developed body aches and sore throat as well. No cough or wheezing. No fevers. 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, Other - Present Medications Home Medications: Ambulatory Orders Medication Instructions Recorded Confirmed Albuterol Sulf [Ventolin Hfa 1 - 2 puffs INH Q4HR PRN #1 inhaler 05/08/18 08/05/19 Inhaler] Multivitamin [Daily Multiple 1 each PO DAILY 08/03/19 08/05/19 Vitamin] Albuterol 2.5 mg INH Q4H PRN #30 neb 10/27/19 Albuterol Sulf [Ventolin Hfa 1 - 2 puffs INH Q4HR PRN #1 inhaler 10/27/19 Inhaler] Benzonatate [Tessalon Perle] 100 mg PO TID PRN #30 capsule 10/27/19 Doxycycline Monohydrate 100 mg PO BID #14 tablet 10/27/19 dexAMETHasone [Decadron] 4 mg PO DAILY #5 tablet 10/27/19 Albuterol Sulf [Ventolin Hfa 1 - 2 puffs INH Q4HR PRN #1 inhaler 12/11/19 Inhaler] dexAMETHasone [Decadron] 4 mg PO BIDWM #10 tablet 04/20/24 - Allergies Allergies/Adverse Reactions: Allergies Allergy/AdvReac Type Severity Reaction Status Date / Time meperidine HCl * Allergy Hives Verified 04/20/24 09:16 [From Demerol] losartan AdvReac Severe angio edema Uncoded 04/18/24 16:54 - Social History Does the pt smoke?: No Smoking Status: Never smoker Does the pt drink ETOH?: No Does the pt have substance abuse?: No - Immunizations Immunizations are current?: No Immunizations: Other immun not current - POLST Patient has POLST: No PD ED PE NORMAL - Vitals Vital signs reviewed: Yes - General General: Alert and oriented X 3, No acute distress - HEENT HEENT: Pharynx benign - Neck Neck: Supple, no meningeal sign, No bony TTP - Cardiac Cardiac: RRR, No murmur - Respiratory Respiratory: No respiratory distress, Clear bilaterally - Abdomen Abdomen: Non tender - Extremities Extremities: No edema, No calf tenderness / cord - Neuro Neuro: Alert and oriented X 3, Normal speech Results - Vitals Vitals: Vital Signs - 24 hr 04/20/24 09:17 Temperature 36.7 C Heart Rate 94 Respiratory 20 Rate Blood Pressure 172/105 H O2 Saturation 100 Oxygen O2 Source Room air - Labs Labs: Laboratory Tests 04/20/24 04/20/24 09:28 09:28 Nasal Adenovirus (PCR) NOT DETECTED Nasal B. parapertussis DNA (PCR) NOT DETECTED Nasal Coronavir 229E PCR NOT DETECTED Nasal Coronavir HKU1 PCR NOT DETECTED Nasal Coronavir NL63 PCR NOT DETECTED Nasal Coronavir OC43 PCR NOT DETECTED Nasal Enterovir/Rhinovir PCR DETECTED A Nasal Influenza B PCR NOT DETECTED Nasal Influenza A PCR NOT DETECTED Nasal Parainfluen 1 PCR NOT DETECTED Nasal Parainfluen 2 PCR NOT DETECTED Nasal Parainfluen 3 PCR NOT DETECTED Nasal Parainfluen 4 PCR NOT DETECTED Nasal RSV (PCR) NOT DETECTED Nasal B.pertussis DNA PCR NOT DETECTED Nasal C.pneumoniae (PCR) NOT DETECTED Jame Human Metapneumo PCR NOT DETECTED Nasal M.pneumoniae (PCR) NOT DETECTED Nasal SARS-CoV-2 (PCR) NOT DETECTED Group A Strep Rapid Negative PD Medical Decision Making - ED course ED course: She was strep negative but enterovirus/rhinovirus positive. Her examination is normal/unremarkable without wheezing. Unclear if her prior angioedema which is better is related to the losartan versus the enterovirus/rhinovirus. Will keep her on steroids pending follow-up. Departure - Departure Disposition: 01 Home, Self Care Clinical Impression: Enteroviral infection Condition: Good Record reviewed to determine appropriate education?: Yes Instructions: ED Viral Syndrome Prescriptions: dexAMETHasone [Decadron] 4 mg PO BIDWM #10 tablet Comments: I sent your prescription electronically to the [facility] [place]. You have a virus family known as enterovirus/rhinovirus. Does need to run its course. You can take Benadryl and/or ibuprofen in addition to the steroids as needed for the symptomatology. Follow-up with your doctor with consideration for alternative blood pressure medication, I am frankly not sure whether the current symptoms are related to the losartan versus the viral infection or potentially a combination of both. Return if worse. Forms: PCP List, Activity restrictions
[2024-04-20 11:44] VITALS: BP 201/120; O2SAT 98
== END 2024-04-20 11:36 | disposition home or self-care (01) ==
LOC: ED 08:49
DX: J02.0 Streptococcal pharyngitis (principal); B34.1 Enterovirus infection, unspecified; I10 Essential (primary) hypertension; Z79.899 Other long term (current) drug therapy
CPT/HCPCS: 87070; 87430; 87633; 99283